=== PATIENT | male | born 1965 | race Caucasian/White ===

== ENCOUNTER 2019-06-12 11:29 | Inpatient (IN) ==
--- NOTE | 2019-06-12 11:56 | Emergency Department Note ---
History of Present Illness General Chief complaint: Eye Problems Stated complaint: RIGHT EYE SWOLLEN Time Seen by Provider: 06/12/19 11:36 History of Present Illness Maximum Pain Intensity: 5 This is a 53-year-old male that presents to the emergency department via referral and transport from the [facility] locally here where he was being treated for mental health. He then this past Wednesday developed some right ear pain that then progressed to swelling of the right ear and then to the right eye. On the , he was placed upon oral Bactrim and Cortisporin ear drops. The patient notes that the pain and swelling is now progressing anteriorly to the right eye and today when he awoke he had a lot of swelling around the right eye. Pain is a 5/10. No fevers or chills. He notes elevated cholesterol but denies any diabetic history. No trauma or injury to the area that he is aware of. He notes an allergy to penicillin. Home Medications Home Medications Medication Instructions Recorded Confirmed Type albuterol sulfate 2 puff INHALATION Q6H PRN 06/12/19 06/12/19 History aluminum-magnesium hydroxide 30 ml PO QID PRN 06/12/19 06/12/19 History [MAG-AL] aspirin [Aspir-81] 81 mg PO DAILY 06/12/19 06/12/19 History atorvastatin 20 mg PO HS 06/12/19 06/12/19 History benztropine 1 mg PO TID 06/12/19 06/12/19 History chlorpromazine 100 mg PO Q8H PRN 06/12/19 06/12/19 History diphenhydramine HCl 50 mg PO HS 06/12/19 06/12/19 History diphenhydramine HCl 50 mg PO Q8H PRN 06/12/19 06/12/19 History divalproex 1,500 mg PO HS 06/12/19 06/12/19 History fluphenazine HCl 10 mg PO BID 06/12/19 06/12/19 History fluphenazine HCl 15 mg PO HS 06/12/19 06/12/19 History magnesium hydroxide [Milk of 30 ml PO DAILY PRN 06/12/19 06/12/19 History Magnesia] mirtazapine 30 mg PO HS 06/12/19 06/12/19 History naproxen 500 mg PO BID PRN 06/12/19 06/12/19 History vqsaatyv-oitvds-OS-thonzonium 4 drp OTIC (EAR) QID 06/12/19 06/12/19 History [Cortisporin-TC] pantoprazole 40 mg PO DAILY 06/12/19 06/12/19 History sulfamethoxazole-trimethoprim 1 tab PO BID 06/12/19 06/12/19 History [Bactrim DS] tamsulosin 0.8 mg PO DAILY 06/12/19 06/12/19 History Allergies Allergy/AdvReac Type Severity Reaction Status Date / Time mold Allergy Unknown Unverified 06/12/19 11:57 Penicillins Allergy Hives Unverified 06/12/19 11:57 quetiapine [From Seroquel] Allergy Unknown Unverified 06/12/19 11:57 Past Med/Surg History Surgical History Hx of tympanostomy tubes (Chronic) Family History Other No pertinent family history Social History Preferred Language: Trinidadian Communication Ability: Effective Beliefs That Will Affect Care: None Current Living Situation: Parent Other Information That Helps Us Care for You: No Feels Safe at Home: Yes Safety Concerns: Feels Safe At This Time Smoking Status: Former smoker Hx Alcohol Use: No Hx Substance Use: No Review of Systems A total of 10 systems reviewed and were otherwise negative Physical Exam Vital Signs Vital Signs - 24 hr 06/12/19 11:34 06/12/19 14:02 Temperature 36.7 C Temperature Source Oral Sepsis Recent Fever Within 48 Hours No Sepsis Action Taken by Nursing No Action Required Pulse Rate 112 H Pulse Rate [Right Finger] 92 H Pulse Rhythm Regular Pulse Strength Normal Respiratory Rate 20 20 Respiratory Effort / Characteristics Non-Labored Spontaneous Respiratory Depth Normal Respiratory Pattern Regular Blood Pressure 105/74 Blood Pressure [Right Arm] 134/96 Blood Pressure Mean 84 Blood Pressure Mean [Right Arm] 108 Blood Pressure Position Sitting Pulse Oximetry 95 93 Oxygen Delivery Method Room Air Room Air VITAL SIGNS - Vital signs and nursing notes were reviewed. Stable and afebrile. GENERAL -53-year-old male appearing his stated age who is in no acute distress. Communicates well with provider and answers questions appropriately. SKIN -externally, the right ear is twice as edematous compared to the left. It is erythematous as well. There is no definite drainage from the right ear. There is mild excoriation with dry skin behind the posterior ear where it meets the mastoid region. There is also erythema and edema extending inferiorly to the angle of the mandible as well as to the right eye. There is a fair amount of edema periorbitally on the right. Left side of the face is unremarkable. The patient does have facial hair, obscuring erythema to that of the chin but there is minimal edema noted tracking to the right side of the neck anteriorly. HEAD - NC/AT. EYES - PERRL with EOMI bilaterally. Sclera anicteric. Skin as above. No drainage per EARS -skin as above. Skin excoriated on the posterior ear. External right ear is tender on examination. There is some cerumen with some moisture noted in the right external ear canal without any definite evidence of otitis externa. This certainly could be moisture from the eardrops. Tympanic membranes pearly burgess without retraction or bulging. No fluid or purulent material visualized behind the TM. Handle of malleus, umbo, cone of light, pars tensa/flaccid all easily visualized. NOSE - Midline and without cyanosis. No epistaxis or purulent drainage noted. Septum midline without deviation or septal hematoma noted. MOUTH/OROPHARYNX - Without perioral cyanosis. Buccal mucosa pink and moist and without leukoplakia. Tongue midline with equal elevation of palate bilaterally. No tonsillar hypertrophy, erythema, or exudates noted. No dentition noted. He is edentulous. He does not wear dentures per NECK - Neck with FROM. Supple to palpation. Right sided anterior cervical lymphadenopathy noted. No nuchal rigidity. LUNGS - Chest wall symmetric without accessory muscle use, intercostals r etractions, or central cyanosis. Normal vesicular breath sounds CTA B/L. No wheezes, rales, or rhonchi appreciated. EXTREMITIES - No clubbing or peripheral cyanosis. No pretibial edema present.+5/5 strength noted in UE/LE bilaterally. NEUROLOGIC - Cranial nerves II through XII grossly intact. Sensory intact to light touch throughout. PSYCH - A&O, and cooperates fully with examiner. Pt is very pleasant and interacts well with examiner. Course Administered Medications Vancomycin HCl 2,000 mg/ (Sodium Chloride) 540 mls @ 200 mls/hr IV NOW ONE Stop: 06/12/19 16:24 Last Admin: 06/12/19 14:32 Dose: 200 mls/hr Documented by: [id number] Ioversol (Optiray 320 100ml) 94 ml IV ONCE PRN PRN Reason: Interaction Checking Stop: 06/16/19 12:48 Last Admin: 06/12/19 12:50 Dose: 94 ml Documented by: [id number] Discontinued Medications Cefepime HCl (Maxipime) Confirm Administered Dose 2,000 mg .ROUTE .STK-MED ONE Stop: 06/12/19 14:10 Last Admin: 06/12/19 14:12 Dose: 2,000 mg Documented by: [id number] Sodium Chloride (Nss 1000ml) 1,000 mls @ 999 mls/hr IV .Q1H1M DAVID Stop: 06/12/19 13:00 Last Infusion: 06/12/19 13:17 Dose: 0 mls/hr Documented by: [id number] Admin: 06/12/19 12:06 Dose: 999 mls/hr Documented by: [id number] Cefepime HCl 2,000 mg/ Syringe 20 mls @ 5 mls/min IV NOW STA Stop: 06/12/19 13:58 Last Admin: 06/12/19 14:35 Dose: Not Given Documented by: [id number] Medical Decision Making Laboratory Data Result diagrams: 06/12/19 11:52 06/12/19 11:52 Lab Results 06/12/19 06/12/19 06/12/19 Range/Units 11:52 11:52 11:52 WBC 8.87 (4.8-10.8) K/uL RBC 4.75 (4.7-6.1) M/uL Hgb 14.2 (14.0-18.0) g/dL Hct 40.1 L (42-52) % MCV 84.4 (80-100) fL MCH 29.9 (25-34) pg MCHC 35.4 (32-36) g/dL RDW Std Deviation 44.3 (36.4-46.3) fL RDW Coeff of [place] 14.2 (11.5-14.5) % Plt Count 99 L (130-400) K/uL MPV 8.7 (7.4-10.4) fL Immature Gran % (Auto) 0.3 % Neut % (Auto) 76.8 % Lymph % (Auto) 5.6 % [place] % (Auto) 16.1 % Eos % (Auto) 1.0 % Baso % (Auto) 0.2 % Immature Gran # (Auto) 0.03 H (0.00-0.02) K/uL Neut # (Auto) 6.80 H (1.4-6.5) K/uL Lymph # (Auto) 0.50 L (1.2-3.4) K/uL [place] # (Auto) 1.43 H (0.11-0.59) K/uL Eos # (Auto) 0.09 (0-0.5) K/uL Baso # (Auto) 0.02 (0-0.2) K/uL Platelet Estimate Decreased L (Normal) Sodium 138 (136-145) mmol/L Potassium 3.6 (3.5-5.1) mmol/L Chloride 104 (98-107) mmol/L Carbon Dioxide 25 (21-32) mmol/L Anion Gap 9.0 (3-11) BUN 11 (7-18) mg/dl Creatinine 1.07 (0.6-1.4) mg/dl Est Cr Clr Drug Dosing 86.0 ml/min Est GFR ( Amer) 90.7 Est GFR (Non-Af Amer) 78.3 BUN/Creatinine Ratio 10.0 (10-20) Glucose 88 (70-99) mg/dl Lactate 1.2 (0.4-2.0) mmol/L Calcium 8.6 (8.5-10.1) mg/dl Total Bilirubin 0.4 (0.2-1) mg/dl AST 26 (15-37) U/L ALT 40 (12-78) U/L Alkaline Phosphatase 67 (45-117) U/L Total Protein 7.2 (6.4-8.2) gm/dl Albumin 3.4 (3.4-5.0) gm/dl Globulin 3.8 (2.5-4.0) gm/dl Albumin/Globulin Ratio 0.9 (0.9-2) Imaging Data Radiologist's Impression: CT OF THE NECK WITH IV CONTRAST CLINICAL HISTORY: R sided eye, ear, neck edema, pain COMPARISON STUDY: No previous studies for comparison. TECHNIQUE: Following IV administration of 94 mL of Optiray-320, helical axial images of the neck were obtained. Sagittal and coronal reconstructions were viewed. Automated exposure control was utilized for the study. A dose lowering technique was utilized adhering to the principles of ALARA. CT DOSE: 2005.62 mGy.cm FINDINGS: A small air-fluid level within the right maxillary sinus is noted with mucosal thickening. Visualized portions of the intracranial contents are unremarkable. There is no abscess within neck. There is extensive right facial and right neck infiltration with skin thickening. There is thickening and enhancement within the right external auditory canal. There is no bony erosion. Trace fluid within the right mastoid air cells is noted. Tonsillar prominence is noted with apparent airway narrowing. There is no prevertebral edema. There is no cervical lymphadenopathy. No suspicious osseous lesions are noted. IMPRESSION: 1. Extensive right facial and neck subcutaneous infiltration and skin thickening with thickening and enhancement of the right external auditory canal. This represents an extensive infectious process and favors right otitis externa. No abscess. The soft tissue gas. 2. Small right maxillary sinus air-fluid level which may reflect acute sinusitis. 3. Trace fluid within the right mastoid air cells. No bony destruction. 4. Tonsillar prominence with apparent airway narrowing which may be due to expiration. Electronically signed by: Abhilash Blackwell M.D. 06/12/2019 1:[address] abd pelvis IV con only CLINICAL HISTORY: lower abd pain COMPARISON STUDY: None. TECHNIQUE: The patient was scanned in a dynamic helical fashion during intravenous administration of 94 cc of Optiray 320. A dose lowering technique was utilized adhering to the principles of ALARA. CT DOSE: FINDINGS: Lower chest: There are small bilateral pleural effusions. There are basilar atelectatic changes Liver: The contrast-enhanced liver is normal in size, contour, and attenuation. There is no intrahepatic biliary ductal dilatation. The hepatic veins and portal veins are patent. Gallbladder: Contracted Spleen: Normal in size and attenuation. Pancreas: Unremarkable. Adrenal glands: There is adrenal gland thickening Kidneys: There is symmetric renal cortical enhancement. The kidneys are normal in size without hydronephrosis. Bowel: There are postsurgical changes of a sigmoid anastomosis. There is gaseous distention of the colon. Transverse colon measures 11 cm. The appendix appears normal. There are right lower quadrant small bowel lipomas versus fatty enteric contents. Peritoneum: There is no intraperitoneal free air or abdominal ascites. Vasculature: The abdominal aorta is normal in course and caliber. Adenopathy: None. Pelvic viscera: The bladder, and pelvic viscera are unremarkable. Skeletal structures: There is an L4-5 disc osteophyte complex. IMPRESSION: 1. Small bilateral pleural effusions 2. Gaseous distention of the colon. No obstructing lesions identified 3. Normal appendix 4. Postsurgical changes of an end to end sigmoid anastomosis 5. Right lower quadrant small bowel lipomas versus fatty enteric contents Electronically signed by: Dragan Cornejo M.D. 06/12/2019 1:35 PM MDM Narrative Patient was seen and evaluated as above in room B10. Review was performed of nursing notes and vital signs. After obtaining a thorough history and physical examination the above work up was performed. He presents to us today with right-sided ear swelling and pain as well as periorbital edema. There is concern for infection. Labs were obtained. CT scan was obtained secondary to the impressive edema and erythema on presentation of the right ear and surrounding structures. CBC reveals no leukocytosis or concerning anemia. Mild thrombocytopenia at 99,000. Electrolyte disturbance. CT scan of the soft tissue neck reveals extensive cellulitis. I also obtained abdomen and pelvis CT because the patient began complaining of abdominal pain that he noted was ongoing for the past week. I suspect the gaseous distention as the etiology of his pain. Given that the patient is already been on p.o. antibiotics with drops I do believe that inpatient management is warranted. I discussed this with the attending as well as SEBASTIAN Hamm for the [facility] service. I also discussed this with the ENT doctor. I spoke to Dr. Charlton. She recommended infectious disease consult, adding IV steroids such as dexamethasone 10 mg every 8 hours as well as Ciprodex eardrops. This was relayed to the admission team. Patient was given IV vancomycin as well as cefepime here secondary to his allergies and for potential coverage. There is no evidence of direct orbit involvement at this time. please refer to further documentation regarding his stay. Case was discussed with the attending physician. I attest that I have personally reviewed the patient medication list. I attest that I have reviewed the patient's blood pressure and it was found to be elevated likely secondary to presentation here. GCS: 15 In the evaluation and treatment of this patient the following differential diagnoses were entertained: Cellulitis, abscess, foreign body, orbital cellulitis, among others. Impression & Plan Periorbital cellulitis, Cellulitis of right ear Discharge Plan Visit Data Chief Complaint: Eye Problems Stated Complaint: RIGHT EYE SWOLLEN ED Provider: Nathaniel Koenig ED Midlevel Provider: Elijah Combs Discharge Problem: Periorbital cellulitis, Cellulitis of right ear Condition: Good Discharge Instructions Interventions: ED Discharge Assessment Last Done: 06/12/19 15:11
[2019-06-12] MEDS ORDERED: SODIUM CHLORIDE 0.9% 1000ML 1,000 ML IV SCH (12:00)
[2019-06-12 12:28] LABS: Albumin Level 3.4 gm/dl (3.4-5.0); Calcium 8.6 mg/dl (8.5-10.1); Est GFR (African American) 90.7; Est GFR (Non-African American) 78.3; Potassium 3.6 mmol/L (3.5-5.1)
[2019-06-12 12:31] LABS: Albumin Globulin Ratio 0.9 (0.9-2); Bilirubin,Total 0.4 mg/dl (0.2-1); Globulin 3.8 gm/dl (2.5-4.0); Total Protein 7.2 gm/dl (6.4-8.2)
[2019-06-12 12:39] LABS: Basophils # (auto) 0.02 K/uL (0-0.2); Basophils % (auto) 0.2 %; Eosinophils # (auto) 0.09 K/uL (0-0.5); Hematocrit (blood only) 40.1 % (42-52); Hemoglobin 14.2 g/dL (14.0-18.0); Immature Granulocytes # (auto) 0.03 K/uL (0.00-0.02); Immature Granulocytes % (auto) 0.3 %; Lymphocytes % (auto) 5.6 %; Mean Corpuscular Hgb Conc 35.4 g/dL (32-36); Mean Corpuscular Volume 84.4 fL (80-100); Mean Platelet Volume 8.7 fL (7.4-10.4); Monocytes # (auto) 1.43 K/uL (0.11-0.59); Monocytes % (auto) 16.1 %; Neutrophils % (auto) 76.8 %; Platelet Count 99 K/uL (130-400); Platelet Estimate Decreased (Normal); RDW Coefficient of Variation 14.2 % (11.5-14.5); RDW Standard Deviation 44.3 fL (36.4-46.3); Red Blood Count 4.75 M/uL (4.7-6.1); White Blood Count 8.87 K/uL (4.8-10.8)
[2019-06-12] MEDS ORDERED: IOVERSOL 100ml IV PRN (12:49)
--- NOTE | 2019-06-12 13:18 | CT Scan Report ---
CT OF THE NECK WITH IV CONTRAST CLINICAL HISTORY: R sided eye, ear, neck edema, pain COMPARISON STUDY: No previous studies for comparison. TECHNIQUE: Following IV administration of 94 mL of Optiray-320, helical axial images of the neck wer e obtained. Sagittal and coronal reconstructions were viewed. Automated exposure control was utiliz ed for the study. A dose lowering technique was utilized adhering to the principles of ALARA. CT DOSE: 2005.62 mGy.cm FINDINGS: A small air-fluid level within the right maxillary sinus is noted with mucosal thickening. Visualized portions of the intracranial contents are unremarkable. There is no abscess within neck. There is extensive right facial and right neck infiltration with skin thickening. There is thickening and enhancement within the right external auditory canal. There is no bony erosion. Trace fluid with in the right mastoid air cells is noted. Tonsillar prominence is noted with apparent airway narrowing . There is no prevertebral edema. There is no cervical lymphadenopathy. No suspicious osseous lesions are noted. IMPRESSION: 1. Extensive right facial and neck subcutaneous infiltration and skin thickening with thickening and enhancement of the right external auditory canal. This represents an extensive infectious process and favors right otitis externa. No abscess. The soft tissue gas. 2. Small right maxillary sinus air-fluid level which may reflect acute sinusitis. 3. Trace fluid within the right mastoid air cells. No bony destruction. 4. Tonsillar prominence with apparent airway narrowing which may be due to expiration. Electronically signed by: Abhilash Blackwell M.D. 06/12/2019 1:17 PM
--- NOTE | 2019-06-12 13:36 | CT Scan Report ---
CT abd pelvis IV con only CLINICAL HISTORY: lower abd pain COMPARISON STUDY: None. TECHNIQUE: The patient was scanned in a dynamic helical fashion during intravenous administration of 94 cc of Optiray 320. A dose lowering technique was utilized adhering to the principles of ALARA. CT DOSE: FINDINGS: Lower chest: There are small bilateral pleural effusions. There are basilar atelectatic changes Liver: The contrast-enhanced liver is normal in size, contour, and attenuation. There is no intrahepa tic biliary ductal dilatation. The hepatic veins and portal veins are patent. Gallbladder: Contracted Spleen: Normal in size and attenuation. Pancreas: Unremarkable. Adrenal glands: There is adrenal gland thickening Kidneys: There is symmetric renal cortical enhancement. The kidneys are normal in size without hydron ephrosis. Bowel: There are postsurgical changes of a sigmoid anastomosis. There is gaseous distention of the co alberto. Transverse colon measures 11 cm. The appendix appears normal. There are right lower quadrant sma ll bowel lipomas versus fatty enteric contents. Peritoneum: There is no intraperitoneal free air or abdominal ascites. Vasculature: The abdominal aorta is normal in course and caliber. Adenopathy: None. Pelvic viscera: The bladder, and pelvic viscera are unremarkable. Skeletal structures: There is an L4-5 disc osteophyte complex. IMPRESSION: 1. Small bilateral pleural effusions 2. Gaseous distention of the colon. No obstructing lesions identified 3. Normal appendix 4. Postsurgical changes of an end to end sigmoid anastomosis 5. Right lower quadrant small bowel lipomas versus fatty enteric contents Electronically signed by: Dragan Cornejo M.D. 06/12/2019 1:35 PM
[2019-06-12] MEDS ORDERED: cefTRIAXone SODIUM 1,000 MG/50 ML BAG IV STA (13:43)
[2019-06-12] MEDS ORDERED: VANCOMYCIN HCL 2,000 MG in SODIUM CHLORIDE 0.9% 500 ML IV ONE (13:43)
[2019-06-12] MEDS ORDERED: VANCOMYCIN CONSULT ACTIVE PRN (13:43)
[2019-06-12] MEDS ORDERED: CEFEPIME 2,000 MG in SYRINGE 7.5 ML IV STA (13:55)
--- NOTE | 2019-06-12 13:59 | Emergency Department Note ---
ED Visit Note Patient was seen by our PA/FLEXIBLE BABYSITTER. I was involved in the patient's care and did evaluate the patient myself. I was involved in the care throughout the ER stay. The patient presents with worsening right facial and right ear redness and inflammation. He is already on antibiotics as an outpatient. He appears to have a right facial cellulitis. Hospitalization and IV antibiotics are indicated. Patient has received IV antibiotic's while here in the ED. The hospitalist is being consulted. .
[2019-06-12] MEDS ORDERED: CEFEPIME 2,000 MG/20 ML VIAL ONE (14:09)
--- NOTE | 2019-06-12 15:30 | History & Physical Report ---
Date of Service June 12, 2019 Assessment & Plan (1) Cellulitis of earlobe: (2) Facial cellulitis: -Admit to [facility] -Patient presenting from the [facility] for evaluation of right earlobe and right facial erythema and edema. Symptoms began about 3 days ago and was seen by a provider at the [facility] and was placed on Bactrim and eardrops on 06/10. -In the ED, patient is hemodynamically stable, afebrile, labs unremarkable; does not appear septic -Facial soft tissue CT does not show any evidence of abscess or fluid collection -Internal ear exam does not show any evidence of ear canal or inner ear involvement; there is periorbital swelling and erythema noted however the eye itself does not appear to be affected, EOM intact without pain and no redness to the eye itself, vision intact -Currently no open areas or drainage to culture -Received IV cefepime and IV Vanco in the ED -ENT (Dr. Charlton) was contacted by the ED who recommends continuing with IV cefepime and Vanco and adding on Decadron 10 mg IV q8h. I discussed tapering plans with Dr. Charlton -can give the Decadron for 48 hours and then stop or if needing to taper, give 10 mg IV BID x2 days, then daily x1 day -ID consult (3) Thrombocytopenia: -platelets 99K -? due to underlying infection -no signs of bleeding, continue to monitor CBC (4) Schizophrenia: -Appears stable -Was to be discharged from the [facility] on 06/09 however due to these ear complaints, patient was kept and was to be discharged today -Continue routine psychiatric medications: Divalproex, benztropine, fluphenazine, mirtazapine, (5) HLD (hyperlipidemia): -Continue statin (6) DVT prophylaxis: -SCDs due to thrombocytopenia, ambulate (7) Discharge planning issues: -Patient is currently discharged from the [facility], however per discussion with the staff there, they report that we are to call them when the patient is discharged from the hospital and they will provide transportation for the patient to home. History of Present Illness Chief Complaint: Right Ear Pain and Swelling Primary Care Provider: Dr. Gabby Flaherty 53-year-old male who presents to the ED from the [facility] for evaluation of right ear pain and swelling. History is somewhat limited from the patient due to his underlying schizophrenia. Case was discussed with the sylvia reyes at the [facility] who reports that the patient developed right ear pain and external ear swelling 3 days ago. He was seen by the PA on 06/10 and started on eardrops and Bactrim. Internal ear was difficult to visualize secondary to pain and swelling. Edema and erythema have been progressively getting worse and now extends over the right side of the face as well as around the right eye. Patient reports he has had some serous drainage from behind the right earlobe, this seems to be a chronic issue. He reports pain over the right ear, right side of his face, around the right eye. He does not have any eye pain with movement of the eye. No fevers or chills. Patient denies chest pain. He has chronic exertional shortness of breath which is unchanged from baseline. No lightheadedness, dizziness, diaphoresis, syncopal events. He reports some nausea and abdominal pain over the past couple of days. No vomiting or diarrhea. He denies any urinary symptoms. In the ED, patient is afebrile, he medically stable, labs unremarkable. Soft tissue CT shows extensive right facial and neck subcutaneous infiltration and skin thickening with thickening and enhancement of the right external auditory canal. Patient was given IVF, IV cefepime, IV Vanco. Allergies Allergy/AdvReac Type Severity Reaction Status Date / Time mold Allergy Unknown Unverified 06/12/19 11:57 Penicillins Allergy Hives Unverified 06/12/19 11:57 quetiapine [From Seroquel] Allergy Unknown Unverified 06/12/19 11:57 Home Medications Home Medications Medication Instructions Recorded Confirmed Type albuterol sulfate 2 puff INHALATION Q6H PRN 06/12/19 06/12/19 History aluminum-magnesium hydroxide 30 ml PO QID PRN 06/12/19 06/12/19 History [MAG-AL] aspirin [Aspir-81] 81 mg PO DAILY 06/12/19 06/12/19 History atorvastatin 20 mg PO HS 06/12/19 06/12/19 History benztropine 1 mg PO TID 06/12/19 06/12/19 History chlorpromazine 100 mg PO Q8H PRN 06/12/19 06/12/19 History diphenhydramine HCl 50 mg PO HS 06/12/19 06/12/19 History diphenhydramine HCl 50 mg PO Q8H PRN 06/12/19 06/12/19 History divalproex 1,500 mg PO HS 06/12/19 06/12/19 History fluphenazine HCl 10 mg PO BID 06/12/19 06/12/19 History fluphenazine HCl 15 mg PO HS 06/12/19 06/12/19 History magnesium hydroxide [Milk of 30 ml PO DAILY PRN 06/12/19 06/12/19 History Magnesia] mirtazapine 30 mg PO HS 06/12/19 06/12/19 History naproxen 500 mg PO BID PRN 06/12/19 06/12/19 History lpphlhuj-olbjmm-ZJ-thonzonium 4 drp OTIC (EAR) QID 06/12/19 06/12/19 History [Cortisporin-TC] pantoprazole 40 mg PO DAILY 06/12/19 06/12/19 History sulfamethoxazole-trimethoprim 1 tab PO BID 06/12/19 06/12/19 History [Bactrim DS] tamsulosin 0.8 mg PO DAILY 06/12/19 06/12/19 History Past Med/Surg History Medical History Carotid artery stenosis (Chronic) Schizophrenia (Chronic) HLD (hyperlipidemia) (Chronic) Surgical History Hx of tympanostomy tubes (Chronic) Family History Father Diabetes Mother Hypertension Social History Preferred Language: Croatian Communication Ability: Effective Beliefs That Will Affect Care: None Current Living Situation: Parent Other Information That Helps Us Care for You: No Feels Safe at Home: Yes Safety Concerns: Feels Safe At This Time Smoking Status: Former smoker Hx Alcohol Use: No Hx Substance Use: No Review of Systems Review of Systems: ROS per HPI, all other systems reviewed and negative Physical Exam Constitutional: WD/WN, vitals as above Eyes: PERRL, conjunctivae normal, anicteric sclerae + periorbital abnormality (Right periorbital edema noted stemming from the right ear/right face); no EOM movement deficit (No pain with EOM) ENMT: Ears: + external ear abnormality (Significant erythema and edema noted to the right earlobe that extends along the right side of the face as well as periorbitally; dry,crusty skin noted behind the earlobe; no drainage noted); no EAC abnormality and no TM abnormality Nose: no external nose abnormality Mouth: no oropharynx abnormality Respiratory: normal respiratory effort, lungs clear to auscultation Cardiovascular: Rate/Rhythm: regular rate and regular rhythm Vessels: normal peripheral pulses Extremities: no edema Gastrointestinal (Abdomen): normal bowel sounds, soft, nontender, no hepatosplenomegaly Musculoskeletal: no cyanosis or clubbing, extremities motor strength 5/5 Skin: no rashes, warm and dry Ear/facial abnormality as noted above Neurologic: PERRL, EOMI, accommodation nl, no face palsy, no dysarthria Psychiatric: Orientation: alert and oriented x 3 Affect: + flat affect Results & Data Vital Signs (Past 12 Hours) Vital Signs Temp Pulse Pulse Resp BP BP Pulse Ox 06/12/19 14:02 92 H 20 134/96 93 06/12/19 11:34 36.7 C 112 H 20 105/74 95 Laboratory Results Short CBC 06/12/19 Range/Units 11:52 WBC 8.87 (4.8-10.8) K/uL Hgb 14.2 (14.0-18.0) g/dL Hct 40.1 L (42-52) % Plt Count 99 L (130-400) K/uL BMP 06/12/19 11:52 Sodium 138 Potassium 3.6 Chloride 104 Carbon Dioxide 25 BUN 11 Creatinine 1.07 Glucose 88 Calcium 8.6 Liver Function 06/12/19 Range/Units 11:52 Total Bilirubin 0.4 (0.2-1) mg/dl AST 26 (15-37) U/L ALT 40 (12-78) U/L Alkaline Phosphatase 67 (45-117) U/L Albumin 3.4 (3.4-5.0) gm/dl Diagnostic Findings SOFT TISSUE NECK CT IMPRESSION: 1. Extensive right facial and neck subcutaneous infiltration and skin thickening with thickening and enhancement of the right external auditory canal. This represents an extensive infectious process and favors right otitis externa. No abscess. The soft tissue gas. 2. Small right maxillary sinus air-fluid level which may reflect acute sinusitis. 3. Trace fluid within the right mastoid air cells. No bony destruction. 4. Tonsillar prominence with apparent airway narrowing which may be due to expiration. CT ABD/PELVIS IMPRESSION: 1. Small bilateral pleural effusions 2. Gaseous distention of the colon. No obstructing lesions identified 3. Normal appendix 4. Postsurgical changes of an end to end sigmoid anastomosis 5. Right lower quadrant small bowel lipomas versus fatty enteric contents Code Status & VTE Plan VTE Prophylaxis Plan VTE Prophylaxis will be ordered: Yes Supervising Physician Co-Signing Physician Notes I have seen and examined the patient and have discussed the case with the provider above. I agree with the assessment and plan as stated with the following exceptions. 53 yo paranoid schizophrenic presented with acute swelling and erythema of the right face and ear. He reports purulent nasal discharge over the last week. On exam he has a cerumen impaction blocking my view of the right TM, and a middle ear effusion on the left. He has some right sided maxillary sinus TTP, and some painful submandibular lymph nodes. Oropharynx is clear and is is speaking without issue and in no respiratory distress. There is a significant area of swelling including cheek and R eyelids all the way up to and including the ear. He is a poor historian and records are unavailable. Soft tissue CT of the neck reveals extensive right facial and neck subcutaneous infiltration and skin thickening with thickening and enhancement of the right external auditory canal, thought consistent with R otitis externa. No abscess is present and there is NO soft tissue gas (confirmed with radiology, there was a typo on the report.). There is a R maxillary sinusitis. Exam is otherwise unremarkable. Assessment: (1) preseptal cellulitis, (2) R otitis externa, (3) acute R maxillary sinusitis, (4) paranoid schizophrenia. Agree with continuing broad spectrum abx pending cultures, clinical improvement and ID recommendations. Decadron pulse dose per ENT recs. Pt also mentioned chest pain that "has been chronic since 1994." He was unable to tell me his cardiac history but said he saw a [employer] and they gave him atorvastatin. DO Александр
[2019-06-12] MEDS ORDERED: CHLORPROMAZINE HCL 100 MG TABLET PO PRN (16:15)
[2019-06-12] MEDS: DEXAMETHASONE SOD PHOSPHATE 10 MG in SYRINGE 0 ML IV SCH (17:52)
--- NOTE | 2019-06-12 19:26 | Pharmacy Report ---
Pharmacy Abx Dose Short Note - Date of Service June 12, 2019 - Assessment & Plan Assessment 53 year old M receiving IV Vancomycin for treatment of R ear, facial cellulitis Day # 1 of antimicrobial therapy. * No renal impairment noted; sCr = 1.07 mg/dL, estimated CrCl ~86 mL/min. Estimated pharmacokinetic parameters: * Ke ~0.076/hr, T1/2 ~9.12 hrs * Vancomycin 2000mg (~21mg/kg) IV was given x 1 as a loading dose at 1432 Plan Vancomycin * Initiate Vancomycin 1500mg (~15mg/kg) IV q10 * Goal trough level for cellulitis : ~15 mcg/mL * Trough level ordered for: 06/14/19 @ 0530 (prior to 4th dose and therefore should be reflective of steady state) Pharmacy will continue to follow and will adjust dose/frequency as necessary. Thank you.
[2019-06-12] MEDS: MIRTAZAPINE TAB 15 MG TAB PO SCH (20:57)
[2019-06-12] MEDS: ATORVASTATIN 20 MG TAB PO SCH (20:58)
[2019-06-12] MEDS: BENZTROPINE MESYLATE 1 MG TAB PO SCH (20:59)
[2019-06-12] MEDS: DIVALPROEX EXTENDED RELEASE 500 MG TAB PO SCH (20:59)
[2019-06-12] MEDS: ACETAMINOPHEN 325 MG TAB PO PRN (22:41)
[2019-06-12] MEDS: VANCOMYCIN HCL 1,500 MG in SODIUM CHLORIDE 0.9% 500 ML IV SCH (23:43)
[2019-06-13] MEDS: DEXAMETHASONE SOD PHOSPHATE 10 MG in SYRINGE 0 ML IV SCH ×3 (02:11→17:40)
[2019-06-13] MEDS: KETOROLAC TROMETHAMINE 15 MG/ML VIAL IV PRN ×2 (03:50→23:40)
[2019-06-13] MEDS: SIMETHICONE 80 MG CHEW PO PRN ×2 (03:50→13:09)
[2019-06-13] MEDS: ACETAMINOPHEN 325 MG TAB PO PRN (06:27)
[2019-06-13 06:32] LABS: Hemoglobin 14.2 g/dL (14.0-18.0); Mean Corpuscular Hgb Conc 34.6 g/dL (32-36); Mean Platelet Volume 9.5 fL (7.4-10.4); Platelet Count 113 K/uL (130-400); RDW Coefficient of Variation 14.2 % (11.5-14.5); RDW Standard Deviation 43.9 fL (36.4-46.3); Red Blood Count 4.88 M/uL (4.7-6.1); White Blood Count 7.98 K/uL (4.8-10.8)
[2019-06-13 07:11] LABS: BUN Creatinine Ratio 10.4 (10-20); Calcium 8.6 mg/dl (8.5-10.1); Creatinine Clr Calc Pharmacy 95.8 ml/min; Est GFR (African American) 103.4; Est GFR (Non-African American) 89.3; Potassium 4.1 mmol/L (3.5-5.1)
[2019-06-13] MEDS: BENZTROPINE MESYLATE 1 MG TAB PO SCH ×3 (08:43→20:44)
[2019-06-13] MEDS: PANTOprazole 40 MG TAB PO SCH (08:43)
[2019-06-13] MEDS: TAMSULOSIN HCL 0.4 MG CAP PO SCH ×2 (08:45→08:48)
[2019-06-13] MEDS: ASPIRIN 81 MG ECTAB PO SCH (08:45)
[2019-06-13] MEDS ORDERED: CEFEPIME CONSULT ACTIVE PRN (09:25)
--- NOTE | 2019-06-13 09:42 | Infectious Disease Consult ---
Date of Consultation June 13, 2019 Assessment & Plan (1) Cellulitis of right ear: (2) Facial cellulitis: Patient with cellulitis involving right ear and face, appears to be showing response to current antibiotics. Pending cultures and ENT evaluation, will continue cefepime and vancomycin. Will follow. (3) Otitis externa: History of Present Illness Reason for Consultation: ear/facial cellulitis Attending Physician: Дмитрий Moulton MD History of Present Illness 53-year-old male with history of schizophrenia, hyperlipidemia, status post bilateral tympanoplasty, who was transferred here from the [facility] with report of 3 to 4-day history of progressively worsening right ear pain along with right facial erythema, swelling, and pain. Was being treated for ear infection with eardrops and Bactrim without improvement. Has been started empirically on vancomycin and cefepime and is showed substantial improvement since yesterday with decrease in the facial swelling and erythema, and improvement in his pain. Blood cultures are negative to date. Denies any other associated symptoms except for nasal discharge. Allergies Allergy/AdvReac Type Severity Reaction Status Date / Time mold Allergy Unknown Unverified 06/12/19 11:57 Penicillins Allergy Hives Unverified 06/12/19 11:57 quetiapine [From Seroquel] Allergy Unknown Unverified 06/12/19 11:57 Home Medications Home Medications Medication Instructions Recorded Confirmed Type Cortisporin-TC 4 drp OTIC (EAR) QID 06/12/19 06/12/19 History MAG-AL 30 ml PO QID PRN 06/12/19 06/12/19 History albuterol sulfate 2 puff INHALATION Q6H PRN 06/12/19 06/12/19 History aspirin [Aspir-81] 81 mg PO DAILY 06/12/19 06/12/19 History atorvastatin 20 mg PO HS 06/12/19 06/12/19 History benztropine 1 mg PO TID 06/12/19 06/12/19 History chlorpromazine 100 mg PO Q8H PRN 06/12/19 06/12/19 History diphenhydramine HCl 50 mg PO HS 06/12/19 06/12/19 History diphenhydramine HCl 50 mg PO Q8H PRN 06/12/19 06/12/19 History divalproex 1,500 mg PO HS 06/12/19 06/12/19 History fluphenazine HCl 10 mg PO BID 06/12/19 06/12/19 History fluphenazine HCl 15 mg PO HS 06/12/19 06/12/19 History magnesium hydroxide [Milk of 30 ml PO DAILY PRN 06/12/19 06/12/19 History Magnesia] mirtazapine 30 mg PO HS 06/12/19 06/12/19 History naproxen 500 mg PO BID PRN 06/12/19 06/12/19 History pantoprazole 40 mg PO DAILY 06/12/19 06/12/19 History tamsulosin 0.8 mg PO DAILY 06/12/19 06/12/19 History Lactobacillus acidoph-L.bulgar 4 tab PO BIDM 15 Days #120 tab 06/15/19 Rx [Floranex] ciprofloxacin HCl 500 mg PO BID 10 Days #20 tab 06/15/19 Rx clindamycin HCl 300 mg PO TID 10 Days #60 cap 06/15/19 Rx simethicone [Mi-Acid Gas Relief] 80 mg PO Q6H PRN 10 Days #30 tab 06/15/19 Rx Patient History Medical History Carotid artery stenosis (Chronic) Schizophrenia (Chronic) HLD (hyperlipidemia) (Chronic) Surgical History Hx of tympanostomy tubes (Chronic) Family History Father Diabetes Mother Hypertension Social History Preferred Language: New Zealander Communication Ability: Effective Beliefs That Will Affect Care: None Current Living Situation: Parent Feels Safe at Home: Yes Smoking Status: Former smoker Hx Alcohol Use: No Hx Substance Use: No Review of Systems Review of Systems: All systems reviewed & are unremarkable except as noted in HPI & below Physical Exam Constitutional: WD/WN, vitals as above comfortable; no acute distress Eyes: PERRL, conjunctivae normal, anicteric sclerae ENMT: Ears: + external ear abnormality (right ear erythema, crusting behind right ear) Nose: no external nose abnormality Mouth: no lip abnormality and no oropharynx abnormality Neck: trachea midline, no thyromegaly neck nontender Respiratory: normal respiratory effort, lungs clear to auscultation normal percussion; does not use accessory muscles Cardiovascular: Rate/Rhythm: regular rate and regular rhythm Heart Sounds: normal S1 and normal S2; no gallop, no murmur and no cardiac rub Vessels: normal peripheral pulses; no JVD Gastrointestinal (Abdomen): normal bowel sounds, soft, nontender, no hepatosplenomegaly Musculoskeletal: no cyanosis or clubbing, extremities motor strength 5/5 Spine: thoracic spine normal to inspection and lumbar spine normal to inspection; no cervical spinal tenderness Skin: no rashes, warm and dry normal turgor and + erythema (right ear and face) Neurologic: patellar DTR's 2+ bilat, sensation intact no focal motor deficits Psychiatric: A+Ox3, euthymic affect Orientation: cooperative Lymphatic: no cervical or axillary lymphadenopathy no inguinal lymphadenopathy Results & Data Vital Signs (Past 12 Hours) Vital Signs Temp Pulse Resp BP Pulse Ox 06/13/19 07:00 36.5 C 81 23 145/92 H 91 06/12/19 23:00 36.9 C 89 20 145/97 H 93 Laboratory Results Short CBC 06/12/19 06/13/19 Range/Units 11:52 06:00 WBC 8.87 7.98 (4.8-10.8) K/uL Hgb 14.2 14.2 (14.0-18.0) g/dL Hct 40.1 L 41.0 L (42-52) % Plt Count 99 L 113 L (130-400) K/uL BMP 06/12/19 06/13/19 11:52 06:00 Sodium 138 133 L Potassium 3.6 4.1 Chloride 104 100 Carbon Dioxide 25 26 BUN 11 10 Creatinine 1.07 0.96 Glucose 88 159 H Calcium 8.6 8.6 Cardiac Enzymes 06/12/19 06/13/19 Range/Units 19:06 00:54 Troponin I < 0.015 < 0.015 (0-0.045) ng/ml Liver Function 06/12/19 Range/Units 11:52 Total Bilirubin 0.4 (0.2-1) mg/dl AST 26 (15-37) U/L ALT 40 (12-78) U/L Alkaline Phosphatase 67 (45-117) U/L Albumin 3.4 (3.4-5.0) gm/dl Diagnostic Findings CT OF THE NECK WITH IV CONTRAST CLINICAL HISTORY: R sided eye, ear, neck edema, pain COMPARISON STUDY: No previous studies for comparison. TECHNIQUE: Following IV administration of 94 mL of Optiray-320, helical axial images of the neck were obtained. Sagittal and coronal reconstructions were viewed. Automated exposure control was utilized for the study. A dose lowering technique was utilized adhering to the principles of ALARA. CT DOSE: 2005.62 mGy.cm FINDINGS: A small air-fluid level within the right maxillary sinus is noted with mucosal thickening. Visualized portions of the intracranial contents are unremarkable. There is no abscess within neck. There is extensive right facial and right neck infiltration with skin thickening. There is thickening and enhancement within the right external auditory canal. There is no bony erosion. Trace fluid within the right mastoid air cells is noted. Tonsillar prominence is noted with apparent airway narrowing. There is no prevertebral edema. There is no cervical lymphadenopathy. No suspicious osseous lesions are noted. IMPRESSION: 1. Extensive right facial and neck subcutaneous infiltration and skin thickening with thickening and enhancement of the right external auditory canal. This r epresents an extensive infectious process and favors right otitis externa. No abscess. The soft tissue gas. 2. Small right maxillary sinus air-fluid level which may reflect acute sinusitis. 3. Trace fluid within the right mastoid air cells. No bony destruction. 4. Tonsillar prominence with apparent airway narrowing which may be due to expiration. Electronically signed by: Abhilash Blackwell M.D. 06/12/2019 1:17 PM Dictated: 06/12/19 1300 Transcribed: 06/12/19 1300 PG Care Time/CCT Total # of Minutes Spent Total Time Spent with Patient: Total time spent is greater than 50% in coordination of care (as documented) at patient's floor/unit and/or counseling patient:
[2019-06-13] MEDS: CEFEPIME 2,000 MG in SYRINGE 7.5 ML IV SCH ×2 (09:58→21:35)
[2019-06-13] MEDS: VANCOMYCIN HCL 1,500 MG in SODIUM CHLORIDE 0.9% 500 ML IV SCH ×2 (09:58→20:18)
[2019-06-13] MEDS: ACETAMINOPHEN 1,000 MG/100 ML VIAL IV SCH ×2 (13:09→21:42)
[2019-06-13] MEDS ORDERED: COUGH DROP (SUGAR FREE) LOZ 24 LOZ/1 BOX BUCCAL PRN (16:33)
--- NOTE | 2019-06-13 18:22 | Hospitalist Progress Note ---
Date of Service June 13, 2019 Assessment & Plan (1) Cellulitis of earlobe: (2) Facial cellulitis: Per admitting service notes: -Patient presenting from the [facility] facility for evaluation of right earlobe and right facial erythema and edema. Symptoms began about 3 days ago and was seen by a provider at the [facility] and was placed on Bactrim and eardrops on 06/10. -In the ED, patient is hemodynamically stable, afebrile, labs unremarkable; does not appear septic -Facial soft tissue CT does not show any evidence of abscess or fluid collection -Internal ear exam does not show any evidence of ear canal or inner ear involvement; there is periorbital swelling and erythema noted however the eye itself does not appear to be affected, EOM intact without pain and no redness to the eye itself, vision intact -ENT (Dr. Charlton) was contacted by the ED who recommends continuing with IV cefepime and Vanco and adding on Decadron 10 mg IV q8h. I discussed tapering plans with Dr. Charlton -can give the Decadron for 48 hours and then stop or if needing to taper, give 10 mg IV BID x2 days, then daily x1 day -ID consult June 13, 2019 Afebrile Facial swelling improving ID consulted Continue Vanco and cefepime Continue dexamethasone taper per outlined above Ofirmev q8 hours for pain (3) Thrombocytopenia: -platelets 99K on admission -? due to underlying infection -no signs of bleeding plt ct 113,000 today (4) Schizophrenia: Per admitting service notes -Was to be discharged from the [facility] on 06/09 however due to these ear complaints, patient was kept admitted -Continue routine psychiatric medications: Divalproex, benztropine, fluphenazine, mirtazapine, Mood stable, calm and cooperative Thoughts seem to be logical Need to coordinate with the [facility] regarding disposition (5) HLD (hyperlipidemia): -Continue statin (6) DVT prophylaxis: -SCDs -Start heparin or Lovenox if with prolonged stay (7) Discharge planning issues: Per admitting service notes -Patient is currently discharged from the [facility], however per discussion with the staff there, they report that we are to call them when the patient is discharged from the hospital and they will provide transportation for the patient to home. Subjective ff up for otitis externa, facial cellulitis Seen resting in bed, comfortable, not in distress Calm, cooperative, does not, oriented x2 Still having significant pain on right side of the face Denies pain on the right orbit, trismus, dysphagia Denies drainage from the right ear No chest pain, shortness of breath, palpitations, dizziness No other symptoms Review of Systems Review of Systems: All systems reviewed & are unremarkable except as noted in HPI & below Physical Exam Physical Exam: General- oriented x2, not in distress, speaks in sentences with no effort or accessory muscle use Head- atraumatic Face-positive moderate edema, mild erythema of the right side of the face, no tenderness, no warmth Eyes-mild right periorbital edema, PERRL, EOMI, anicteric ENT-right ear: Auricle with no edema, no drainage, tympanic membrane intact oropharynx clear, no trismus Neck- supple, no JVD, no adenopathy, no thyromegaly; carotids +2/2, no bruits appreciated Lungs- clear to auscultation bilaterally, no rales/wheezes Heart- normal rate, regular rhythm; no murmur, no gallop, no rub appreciated Abdomen- normal bowel sounds, nondistended, soft, nontender, no masses or hepatosplenomegaly Extremities- no pretibial edema, no calf tenderness; peripheral pulses intact Neuro- alert, oriented x 23; CN 2-12 grossly intact; motor 5/5 bilaterally;sensation 100% on all extremities; no other gross focal neurologic deficits Skin- warm & dry Results & Data Vital Signs (Past 12 Hours) Vital Signs Temp Pulse Resp BP BP Pulse Ox 06/13/19 15:38 37.0 C 86 19 147/80 H 90 06/13/19 07:00 36.5 C 81 23 145/92 H 91
[2019-06-13] MEDS: DIVALPROEX EXTENDED RELEASE 500 MG TAB PO SCH (20:44)
[2019-06-13] MEDS: ATORVASTATIN 20 MG TAB PO SCH (20:44)
[2019-06-13] MEDS: MIRTAZAPINE TAB 15 MG TAB PO SCH (20:45)
[2019-06-14] MEDS: DEXAMETHASONE SOD PHOSPHATE 10 MG in SYRINGE 0 ML IV SCH ×3 (01:59→18:35)
[2019-06-14] MEDS ORDERED: VANCOMYCIN TROUGH ONE (05:30)
[2019-06-14] MEDS: ACETAMINOPHEN 1,000 MG/100 ML VIAL IV SCH ×3 (05:31→21:53)
[2019-06-14] MEDS: VANCOMYCIN HCL 1,500 MG in SODIUM CHLORIDE 0.9% 500 ML IV SCH ×2 (05:49→17:07)
[2019-06-14] MEDS: PANTOprazole 40 MG TAB PO SCH (08:34)
[2019-06-14] MEDS: BENZTROPINE MESYLATE 1 MG TAB PO SCH ×3 (08:35→20:56)
[2019-06-14] MEDS: TAMSULOSIN HCL 0.4 MG CAP PO SCH (08:35)
[2019-06-14] MEDS: ASPIRIN 81 MG ECTAB PO SCH (08:35)
--- NOTE | 2019-06-14 10:05 | Pharmacy Report ---
Pharmacy Abx Dose Short Note - Date of Service June 14, 2019 - Assessment & Plan A/P Today's Css trough therapeutic: 12.1mcg/mL for cellulitis. Pt's clinical status seems to be improving. No fever, elevated white count. Will continue with current regimen. No repeat trough ordered due to current lvl being at steady state. Will order a renal fxn for 06/15. Pharmacy will continue to follow and will adjust dose/frequency as necessary. Thank you.
[2019-06-14] MEDS: CEFEPIME 2,000 MG in SYRINGE 7.5 ML IV SCH ×2 (11:16→21:53)
--- NOTE | 2019-06-14 13:33 | Hospitalist Progress Note ---
Date of Service June 14, 2019 Assessment & Plan (1) Facial cellulitis: Patient presenting from the [facility] for evaluation of right earlobe and right facial erythema and edema. Symptoms began about 3 days Before admission Knee was seen by a provider at the [facility] and was placed on Bactrim and eardrops on 06/10. He presented to ER with spreading otitis externa And failed outpatient treatment Facial soft tissue CT does not show any evidence of abscess or fluid collection Internal ear exam does not show any evidence of ear canal or inner ear involvement; there is periorbital swelling and erythema noted however the eye itself does not appear to be affected, EOM intact without pain and no redness to the eye itself, vision intact ENT (Dr. Charlton) was contacted by the ED who recommends continuing with IV cefepime and Vanco and adding on Decadron 10 mg IV q8h. I discussed tapering plans with Dr. Charlton -can give the Decadron for 48 hours and then stop or if needing to taper, give 10 mg IV BID x2 days, then daily x1 day ID consult-Appreciate input and recommendation Has been much better as of today06/14 Minimal swelling around right ear And right Periorbitally Will await ID recommendation for oral antibiotic (2) Otitis externa: Failed outpatient treatment for otitis externa with Bactrim Management as above (3) Cellulitis of earlobe: As above (4) Thrombocytopenia: -platelets 99K on admission -no signs of bleeding plt ct 113,000 todayon 06/13 (5) Schizophrenia: Per admitting service notes -Was to be discharged from the [facility] on 06/09 however due to these ear complaints, patient was kept admitted -Continue routine psychiatric medications: Divalproex, benztropine, fluphenaz ine, mirtazapine, Mood stable, calm and cooperative Thoughts seem to be logical Need to coordinate with the [facility] regarding disposition (6) HLD (hyperlipidemia): -Continue statin (7) DVT prophylaxis: -SCDs -Start heparin or Lovenox if with prolonged stay (8) Discharge planning issues: Per admitting service notes Patient is currently discharged from the [facility], however per discussion with the staff there, they report that we are to call them when the patient is discharged from the hospital and they will provide transportation for the patient to home. Social service for discharge planning Subjective 06/14 Patient was seen and examined in medical telemetry unit He is a 53-year-old male with significant past medical history of schizophrenia and thrombocytopenia was admitted with outpatient failure of right otitis exter na He was admitted from [facility] Complaining of minimal pain at the right ear and right facial area Complaints to have some problem with urination and abdominal pain Denies any problem with urine Production and her bowel habit Review of Systems Review of Systems: All systems reviewed is unremarkable except as noted below Constitutional: + fatigue Gastrointestinal: + abdominal pain (Nonspecific without distention and bloating) Genitourinary: + difficulty urinating (At times) Psychiatric: + confusion (Pleasantly confused); no hallucinations Physical Exam Physical Exam: Lying in bed comfortably Constitutional: + ill appearing and + morbidly obese; no acute distress Eyes: PERRL, conjunctivae normal, anicteric sclerae + periorbital abnormality (Right periorbital edema noted stemming from the right ear/right face); no EOM movement deficit (No pain with EOM) ENMT: Ears: + external ear abnormality (Significant erythema and edema noted to the right earlobe that extends along the right side of the face as well as periorbitally; dry,crusty skin noted behind the earlobe; no drainage noted); no EAC abnormality and no TM abnormality Nose: no external nose abnormality Mouth: no oropharynx abnormality Neck: trachea midline, no thyromegaly Respiratory: normal respiratory effort, lungs clear to auscultation Cardiovascular: Rate/Rhythm: regular rate and regular rhythm Vessels: normal peripheral pulses Extremities: no edema Gastrointestinal (Abdomen): Inspection/Auscultation: abdomen normal to inspection Percussion/Palpation: abdomen soft Musculoskeletal: no cyanosis or clubbing, extremities motor strength 5/5 No acute arthritis in any of the joints Skin: no rashes, warm and dry Neurologic: moves all extremities; no focal motor deficits Psychiatric: Orientation: alert and oriented x 3 Affect: + flat affect Lymphatic: no cervical or axillary lymphadenopathy Results & Data Vital Signs (Past 12 Hours) Vital Signs Temp Pulse Resp BP Pulse Ox 06/14/19 11:20 36.3 C L 103 H 20 164/92 H 93 06/14/19 07:26 36.6 C 76 20 150/90 H 93 Medications Administered Current Inpatient Medications Aspirin (Ecotrin Ectab) 81 mg PO DAILY DAVID Stop: 07/13/19 08:59 Last Admin: 06/14/19 08:35 Dose: 81 mg Documented by: Atorvastatin Calcium (Lipitor) 20 mg PO HS [facility] Stop: 07/12/19 20:59 Last Admin: 06/13/19 20:44 Dose: 20 mg Documented by: Benztropine Mesylate (Cogentin) 1 mg PO TID DAVID Stop: 07/12/19 20:59 Last Admin: 06/14/19 08:35 Dose: 1 mg Documented by: Chlorpromazine HCl (Thorazine) 100 mg PO Q8H PRN PRN Reason: Agitation Stop: 07/12/19 16:14 Diphenhydramine HCl (Benadryl Capsule) 50 mg PO HS [facility] Stop: 07/12/19 20:59 Last Admin: 06/13/19 20:44 Dose: 50 mg Documented by: Diphenhydramine HCl (Benadryl Capsule) 50 mg PO Q8H PRN PRN Reason: Agitation Stop: 07/12/19 16:14 Divalproex Sodium (Depakote Extended Release) 1,500 mg PO [facility] Stop: 07/12/19 20:59 Last Admin: 06/13/19 20:44 Dose: 1,500 mg Documented by: Fluphenazine HCl (Prolixin) 10 mg PO BID@0900,1400 [facility] Stop: 07/12/19 16:59 Last Admin: 06/14/19 08:35 Dose: 10 mg Documented by: Fluphenazine HCl (Prolixin) 15 mg PO [facility] Stop: 07/12/19 20:59 Last Admin: 06/13/19 20:45 Dose: 15 mg Documented by: Dexamethasone Sodium Phosphate (10 mg/ Syringe) 2.5 mls @ 1 mls/min IV Q8H DAVID Stop: 07/12/19 17:59 Last Admin: 06/14/19 10:33 Dose: 1 mls/min Documented by: Vancomycin HCl 1,500 mg/ (Sodium Chloride) 530 mls @ 200 mls/hr IV Q10H DAVID Stop: 06/22/19 00:00 Last Infusion: 06/14/19 08:28 Dose: Infused Documented by: Acetaminophen (Ofirmev) 1,000 mg in 100 mls @ 400 mls/hr IV Q8H DAVID Stop: 07/13/19 13:59 Last Infusion: 06/14/19 05:49 Dose: Infused Documented by: Cefepime HCl 2,000 mg/ Syringe 20 mls @ 5 mls/min IV Q12H DAVID Stop: 06/23/19 09:59 Last Admin: 06/14/19 11:16 Dose: 5 mls/min Documented by: Ketorolac Tromethamine (Toradol) 15 mg IV Q6H PRN PRN Reason: Pain Stop: 06/17/19 16:14 Last Admin: 06/13/19 23:40 Dose: 15 mg Documented by: Menthol (Nice) 1 angelic BUCCAL PRN PRN PRN Reason: Sore Throat Stop: 07/13/19 16:32 Last Admin: 06/13/19 17:39 Dose: 1 angelic Documented by: Mirtazapine (Remeron) 30 mg PO HS DAVID Stop: 07/12/19 20:59 Last Admin: 06/13/19 20:45 Dose: 30 mg Documented by: Miscellaneous Information (Consult) 1 ea N/A UD PRN PRN Reason: Consult Stop: 07/12/19 13:42 Miscellaneous Information (Cefepime Consult Active) 1 ea N/A UD PRN PRN Reason: Consult Stop: 07/13/19 09:24 Pantoprazole Sodium (Protonix) 40 mg PO DAILY DAVID Stop: 07/13/19 08:59 Last Admin: 06/14/19 08:34 Dose: 40 mg Documented by: Simethicone (Mylicon) 80 mg PO Q6H PRN PRN Reason: Gas or Constipation Stop: 07/13/19 02:44 Last Admin: 06/13/19 13:09 Dose: 80 mg Documented by: Tamsulosin HCl (Flomax) 0.8 mg PO DAILY DAVID Stop: 07/13/19 08:59 Last Admin: 06/14/19 08:35 Dose: 0.4 mg Documented by:
[2019-06-14] MEDS: DIVALPROEX EXTENDED RELEASE 500 MG TAB PO SCH (20:49)
[2019-06-14] MEDS: MIRTAZAPINE TAB 15 MG TAB PO SCH (20:54)
[2019-06-14] MEDS: ATORVASTATIN 20 MG TAB PO SCH (20:57)
[2019-06-15] MEDS: DEXAMETHASONE SOD PHOSPHATE 10 MG in SYRINGE 0 ML IV SCH ×2 (02:34→10:30)
[2019-06-15] MEDS: VANCOMYCIN HCL 1,500 MG in SODIUM CHLORIDE 0.9% 500 ML IV SCH (02:38)
[2019-06-15] MEDS: ACETAMINOPHEN 1,000 MG/100 ML VIAL IV SCH ×2 (05:17→14:27)
[2019-06-15] MEDS: BENZTROPINE MESYLATE 1 MG TAB PO SCH ×2 (07:51→14:28)
[2019-06-15] MEDS: TAMSULOSIN HCL 0.4 MG CAP PO SCH ×2 (07:51→08:16)
[2019-06-15] MEDS: ASPIRIN 81 MG ECTAB PO SCH (07:53)
[2019-06-15] MEDS: PANTOprazole 40 MG TAB PO SCH (08:17)
[2019-06-15 08:18] LABS: Creatinine Clr Calc Pharmacy 112.2 ml/min; Est GFR (African American) 116.2; Est GFR (Non-African American) 100.3
[2019-06-15] MEDS: CEFEPIME 2,000 MG in SYRINGE 7.5 ML IV SCH (10:31)
[2019-06-15] MEDS ORDERED: CIPROFLOXACIN 500 MG TAB PO SCH (11:15)
[2019-06-15] MEDS: KETOROLAC TROMETHAMINE 15 MG/ML VIAL IV PRN (11:15)
[2019-06-15] MEDS ORDERED: CLINDAMYCIN HCL 150 MG CAP PO SCH (12:00)
--- NOTE | 2019-06-15 14:35 | Infectious Disease Progress Nt ---
Date of Service June 15, 2019 Assessment & Plan (1) Cellulitis of right ear: (2) Facial cellulitis: Patient with cellulitis involving right ear and face with good response to IV antibiotics. I think at this point patient can be transitioned to oral antibiotics given negative blood cultures. Recommend combination of clindamycin and ciprofloxacin. Discussed with hospitalist service. (3) Otitis externa: Subjective Patient seen in follow-up for right ear and facial cellulitis. Has responded well to IV antibiotics, erythema and swelling almost completely gone. No fever or chills. Blood cultures remain negative. No other new complaints. Review of Systems Review of Systems: All systems reviewed & are unremarkable except as noted in HPI & below Physical Exam Constitutional: WD/WN, vitals as above comfortable; no acute distress Eyes: PERRL, conjunctivae normal, anicteric sclerae ENMT: Ears: + external ear abnormality (right ear erythema, crusting behind right ear) Nose: no external nose abnormality Mouth: no lip abnormality and no oropharynx abnormality Neck: trachea midline, no thyromegaly neck nontender Respiratory: normal respiratory effort, lungs clear to auscultation normal percussion; does not use accessory muscles Cardiovascular: Rate/Rhythm: regular rate and regular rhythm Heart Sounds: normal S1 and normal S2; no gallop, no murmur and no cardiac rub Vessels: normal peripheral pulses; no JVD Gastrointestinal (Abdomen): normal bowel sounds, soft, nontender, no hepa tosplenomegaly Musculoskeletal: no cyanosis or clubbing, extremities motor strength 5/5 Spine: thoracic spine normal to inspection and lumbar spine normal to inspection; no cervical spinal tenderness Skin: no rashes, warm and dry normal turgor and + erythema (right ear and face improved from yesterday) Neurologic: patellar DTR's 2+ bilat, sensation intact no focal motor deficits Psychiatric: A+Ox3, euthymic affect Orientation: cooperative Lymphatic: no cervical or axillary lymphadenopathy no inguinal lymphadenopathy Results & Data Vital Signs (Past 12 Hours) Vital Signs Temp Pulse Resp BP Pulse Ox 06/15/19 07:24 36.9 C 77 20 149/88 H 99 Laboratory Results BMP 06/15/19 07:18 Creatinine 0.82 Diagnostic Findings Microbiology 06/12/19 14:08 Blood Aerobic Blood Culture - Preliminary No growth in Aerobic bottle after 48 hours. 06/12/19 14:08 Blood Anaerobic Blood Culture - Final 06/12/19 11:52 Blood Aerobic Blood Culture - Preliminary No growth in Aerobic bottle after 48 hours. 06/12/19 11:52 Blood Anaerobic Blood Culture - Preliminary No growth in Anaerobic bottle after 48 hours. cc: ~ CT abd pelvis IV con only CLINICAL HISTORY: lower abd pain COMPARISON STUDY: None. TECHNIQUE: The patient was scanned in a dynamic helical fashion during intravenous administration of 94 cc of Optiray 320. A dose lowering technique was utilized adhering to the principles of ALARA. CT DOSE: FINDINGS: Lower chest: There are small bilateral pleural effusions. There are basilar atelectatic changes Liver: The contrast-enhanced liver is normal in size, contour, and attenuation. There is no intrahepatic biliary ductal dilatation. The hepatic veins and portal veins are patent. Gallbladder: Contracted Spleen: Normal in size and attenuation. Pancreas: Unremarkable. Adrenal glands: There is adrenal gland thickening Kidneys: There is symmetric renal cortical enhancement. The kidneys are normal in size without hydronephrosis. Bowel: There are postsurgical changes of a sigmoid anastomosis. There is gaseous distention of the colon. Transverse colon measures 11 cm. The appendix appears normal. There are right lower quadrant small bowel lipomas versus fatty enteric contents. Peritoneum: There is no intraperitoneal free air or abdominal ascites. Vasculature: The abdominal aorta is normal in course and caliber. Adenopathy: None. Pelvic viscera: The bladder, and pelvic viscera are unremarkable. Skeletal structures: There is an L4-5 disc osteophyte complex. IMPRESSION: 1. Small bilateral pleural effusions 2. Gaseous distention of the colon. No obstructing lesions identified 3. Normal appendix 4. Postsurgical changes of an end to end sigmoid anastomosis 5. Right lower quadrant small bowel lipomas versus fatty enteric contents Electronically signed by: Dragan Cornejo M.D. 06/12/2019 1:35 PM Dictated: 06/12/19 1327 Transcribed: 06/12/19 1333 PG Care Time/CCT Total # of Minutes Spent Total Time Spent with Patient: Total time spent is greater than 50% in coordination of care (as documented) at patient's floor/unit and/or counseling patient:
[2019-06-15] MEDS ORDERED: LACTOBACILLUS ACIDOPHILUS (FLORANEX) TAB PO SCH (17:00)
--- NOTE | 2019-06-15 18:24 | Discharge Summary ---
Date of Service June 15, 2019 Admission HPI Per Admitting Provider 53-year-old male who presents to the ED from the [facility] for evaluation of right ear pain and swelling. History is somewhat limited from the patient due to his underlying schizophrenia. Case was discussed with the staff at the [facility] who reports that the patient developed right ear pain and external ear swelling 3 days ago. He was seen by the PA on 06/10 and started on eardrops and Bactrim. Internal ear was difficult to visualize secondary to pain and swelling. Edema and erythema have been progressively getting worse and now extends over the right side of the face as well as around the right eye. Patient reports he has had some serous drainage from behind the right earlobe, this seems to be a chronic issue. He reports pain over the right ear, right side of his face, around the right eye. He does not have any eye pain with movement of the eye. No fevers or chills. Patient denies chest pain. He has chronic exertional shortness of breath which is unchanged from baseline. No lightheadedness, dizziness, diaphoresis, syncopal events. He reports some nausea and abdominal pain over the past couple of days. No vomiting or diarrhea. He denies any urinary symptoms. In the ED, patient is afebrile, he medically stable, labs unremarkable. Soft tissue CT shows extensive right facial and neck subcutaneous infiltration and skin thickening with thickening and enhancement of the right external auditory canal. Patient was given IVF, IV cefepime, IV Vanco. Admission Exam Per Admitting Provider Constitutional: WD/WN, vitals as above Eyes: PERRL, conjunctivae normal, anicteric sclerae + periorbital abnormality (Right periorbital edema noted stemming from the right ear/right face); no EOM movement deficit (No pain with EOM) ENMT: Ears: + external ear abnormality (Significant erythema and edema noted to the right earlobe that extends along the right side of the face as well as periorbitally; dry,crusty skin noted behind the earlobe; no drainage noted); no EAC abnormality and no TM abnormality Nose: no external nose abnormality Mouth: no oropharynx abnormality Respiratory: normal respiratory effort, lungs clear to auscultation Cardiovascular: Rate/Rhythm: regular rate and regular rhythm Vessels: normal peripheral pulses Extremities: no edema Gastrointestinal (Abdomen): normal bowel sounds, soft, nontender, no hepatosplenomegaly Musculoskeletal: no cyanosis or clubbing, extremities motor strength 5/5 Skin: no rashes, warm and dry Ear/facial abnormality as noted above Neurologic: PERRL, EOMI, accommodation nl, no face palsy, no dysarthria Psychiatric: Orientation: alert and oriented x 3 Affect: + flat affect Principal Diagnosis Right otitis externa with facial cellulitis, schizophrenia Discharge Exam Constitutional + ill appearing and + morbidly obese; no acute distress Eyes PERRL, conjunctivae normal, anicteric sclerae + periorbital abnormality (Right periorbital edema noted stemming from the right ear/right face); no EOM movement deficit (No pain with EOM) ENMT Ears: + external ear abnormality (Significant erythema and edema noted to the right earlobe that extends along the right side of the face as well as periorbitally; dry,crusty skin noted behind the earlobe; no drainage noted); no EAC abnormality and no TM abnormality Nose: no external nose abnormality Mouth: no oropharynx abnormality Neck trachea midline, no thyromegaly Respiratory normal respiratory effort, lungs clear to auscultation Cardiovascular Rate/Rhythm: regular rate and regular rhythm Vessels: normal peripheral pulses Extremities: no edema Gastrointestinal (Abdomen) Inspection/Auscultation: abdomen normal to inspection Percussion/Palpation: abdomen soft Musculoskeletal no cyanosis or clubbing, extremities motor strength 5/5 Skin no rashes, warm and dry Neurologic moves all extremities; no focal motor deficits Psychiatric Orientation: alert and oriented x 3 Affect: + flat affect Lymphatic no cervical or axillary lymphadenopathy Discharge Data Allergies Allergy/AdvReac Type Severity Reaction Status Date / Time mold Allergy Unknown Unverified 06/12/19 11:57 Penicillins Allergy Hives Unverified 06/12/19 11:57 quetiapine [From Seroquel] Allergy Unknown Unverified 06/12/19 11:57 Consultations 06/12/19 16:15 Consult Case Management - Discharge Planning Routine Consult Infectious Diseases Routine 06/12/19 18:44 Consult Health Information Management Routine 06/15/19 11:56 Consult Case Management - Discharge Planning Routine Ordered Studies 06/12/19 11:46 CT soft tissue neck w con Stat 06/12/19 12:47 CT abd pelvis IV con only Stat Hospital Course (1) Facial cellulitis: Patient presenting from the [facility] for evaluation of right earlobe and right facial erythema and edema. Symptoms began about 3 days Before admission Knee was seen by a provider at the [facility] and was placed on Bactrim and eardrops on 06/10. He presented to ER with spreading otitis externa And failed outpatient treatment Facial soft tissue CT does not show any evidence of abscess or fluid collection Internal ear exam does not show any evidence of ear canal or inner ear involvement; there is periorbital swelling and erythema noted however the eye itself does not appear to be affected, EOM intact without pain and no redness to the eye itself, vision intact ENT (Dr. Charlton) was contacted by the ED who recommends continuing with IV cefepime and Vanco and adding on Decadron 10 mg IV q8h. I discussed tapering plans with Dr. Charlton -can give the Decadron for 48 hours and then stop or if needing to taper, give 10 mg IV BID x2 days, then daily x1 day ID consult-Appreciate input and recommendation Has been much better as of today06/14 Minimal swelling around right ear And right Periorbitally Will await ID recommendation for oral antibiotic (2) Otitis externa: Failed outpatient treatment for otitis externa with Bactrim Management as above (3) Cellulitis of earlobe: As above (4) Thrombocytopenia: -platelets 99K on admission -no signs of bleeding plt ct 113,000 todayon 06/13 (5) Schizophrenia: Per admitting service notes -Was to be discharged from the [facility] on 06/09 however due to these ear complaints, patient was kept admitted -Continue routine psychiatric medications: Divalproex, benztropine, fluphenazine, mirtazapine, Mood stable, calm and cooperative Thoughts seem to be logical Need to coordinate with the [facility] regarding disposition (6) HLD (hyperlipidemia): -Continue statin (7) DVT prophylaxis: -SCDs -Start heparin or Lovenox if with prolonged stay (8) Discharge planning issues: Per admitting service notes Patient is currently discharged from the [facility], however per discussion with the staff there, they report that we are to call them when the patient is discharged from the hospital and they will provide transportation for the patient to home. Social service for discharge planning Total Time Total Time Spent Total Time Spent (In Minutes): 40 minutes Total Time Includes: Examination of the Patient, Discharge Planning, Medication Reconciliation and Communication With Other Providers Discharge Plan Discharge Items Patient Disposition: Transfer Behavioral Health Fac Reason For Visit: RIGHT EAR CELLULITIS, FACIAL CELLULITIS Discharge Diagnosis: Right otitis externa with facial cellulitis, schizophrenia Condition: Good Discharge Goals: Decrease discomfort, Improve function and Increase independence Activity: Resume your previous activity Non-emergency contact: Primary Care Provider Call non-emergency contact if: you have any medication questions Follow-up/Referrals: [facility] [Primary Care Provider] - (Please make an appointment with your primary care physician within 1 week of discharge from the facility) Diet: Regular Addtl Provider Instructions: He was advised to go to inpatient psych at [facility] before going home from there Prescriptions: New clindamycin HCl 150 mg Capsule 300 mg PO TID 10 Days Qty: 60 RF: 0 ciprofloxacin HCl 500 mg Tablet 500 mg PO BID 10 Days Qty: 20 RF: 0 simethicone [Mi-Acid Gas Relief] 80 mg Tablet,Chewable 80 mg PO Q6H PRN (Reason: abdominal distention) 10 Days Qty: 30 RF: 0 Lactobacillus acidoph-L.bulgar [Floranex] 1 million cell Tablet 4 tab PO BIDM 15 Days Qty: 120 RF: 0 Continued Cortisporin-TC 3.3-3-10-0.5 mg/mL Drops,Suspension 4 drp OTIC (EAR) QID RF: 0 atorvastatin 20 mg Tablet 20 mg PO HS RF: 0 diphenhydramine HCl 50 mg Capsule 50 mg PO Q8H PRN (Reason: Agitation) RF: 0 diphenhydramine HCl 50 mg Capsule 50 mg PO HS RF: 0 chlorpromazine 100 mg Tablet 100 mg PO Q8H PRN (Reason: Agitation) RF: 0 fluphenazine HCl 10 mg Tablet 10 mg PO BID RF: 0 aspirin [Aspir-81] 81 mg Tablet,Delayed Release (Dr/Ec) 81 mg PO DAILY RF: 0 magnesium hydroxide [Milk of Magnesia] 400 mg/5 mL Suspension 30 ml PO DAILY PRN (Reason: Constipation) RF: 0 tamsulosin 0.4 mg Capsule 0.8 mg PO DAILY RF: 0 pantoprazole 40 mg Tablet,Delayed Release (Dr/Ec) 40 mg PO DAILY RF: 0 mirtazapine 30 mg Tablet 30 mg PO HS RF: 0 divalproex 500 mg Tablet Extended Release 24 Hr 1,500 mg PO HS RF: 0 benztropine 1 mg Tablet 1 mg PO TID RF: 0 albuterol sulfate 90 mcg/actuation Hfa Aerosol Inhaler 2 puff INHALATION Q6H PRN (Reason: Shortness Of Breath) RF: 0 fluphenazine HCl 5 mg Tablet 15 mg PO HS RF: 0 naproxen 500 mg Tablet 500 mg PO BID PRN (Reason: Pain) RF: 0 MAG-AL 200-200 mg/5 mL Suspension 30 ml PO QID PRN (Reason: Indigestion) RF: 0 Discontinued sulfamethoxazole-trimethoprim [Bactrim DS] 800-160 mg Tablet 1 tab PO BID RF: 0 Stand-Alone Forms: [facility] Discharge Orders: Discharge Order (Routine); Ordered 06/15/19 Ordered By: Norman Perez Admission Data Admit Date/Time: 06/12/19 14:24 Attending Provider: Norman Perez Admit Provider: Sanaz Fountain Primary Care Provider: Isidro Lezama Other Providers: Areli Abbott ; Дмитрий Moulton Service: Medical Other Interventions: Discharge Summary Assessment (RN) Last Done: 06/15/19 15:41 DC Date/Time DO NOT enter until pt leaves facility: 06/15/19 16:37
== END 2019-06-15 16:37 | DRG 603 ==
LOC: ED 11:29 → 2N 14:24 → SUATTDRO 14:24 → 2N 15:11